=== PATIENT | female | born 1945 | race Caucasian/White ===

== ENCOUNTER 2018-01-28 08:41 | Inpatient (IN) | payer MEDICARE, BC ==
--- NOTE | 2018-01-28 09:14 | ED ---
General Adult HPI - General Chief complaint: Dizziness Stated complaint: Dizzy, Poss Mini Stroke Time Seen by Provider: 01/28/18 08:51 Source: patient, RN notes reviewed, old records reviewed Mode of arrival: wheelchair Limitations: no limitations - History of Present Illness Initial comments: 72-year-old female presents for evaluation of dizziness and patient has history of TIA, she states that this morning she woke at 545, she felt quite dizzy and felt that she was unsteady on her feet and that she was falling to the right. Denies any weakness or numbness. Denies slurred speech SHE states she did not speak with anyone this morning. She states this episode is similar to previous TIA in the past which was approximately 2 years ago. Denies chest pain or shortness of breath. Denies fever or chills. She denies vertigo symptoms. There is no nausea. No diaphoresis. No abdominal pain nausea or vomiting. Patient did report a mild right-sided headache. - Related Data Home Medications Medication Instructions Recorded Confirmed Cholecalciferol [Vitamin D3] 1,000 unit PO DAILY 04/16/15 01/28/18 Cyanocobalamin [Vitamin B-12] 500 mcg PO DAILY 04/16/15 01/28/18 Ferrous Sulfate [Iron (65 MG 325 mg PO DAILY 04/16/15 01/28/18 Elemental)] Levothyroxine Sodium [Synthroid] 125 mcg PO DAILY 04/16/15 01/28/18 Aspirin EC [Ecotrin Low Dose] 243 mg PO ONCE PRN 01/28/18 01/28/18 Lansoprazole [Prevacid] 30 mg PO DAILY 01/28/18 01/28/18 Previous Rx's Medication Instructions Recorded Atorvastatin Calcium [Lipitor] 20 mg PO HS #30 tab 04/18/15 Allergies Allergy/AdvReac Type Severity Reaction Status Date / Time No Known Allergies Allergy Verified 01/28/18 09:18 Review of Systems ROS Statement: Those systems with pertinent positive or pertinent negative responses have been documented in the HPI. ROS Other: All systems not noted in ROS Statement are negative. Past Medical History Past Medical History: Cancer, CVA/TIA, GERD/Reflux, Hyperlipidemia, Osteoarthritis (OA), Skin Disorder, Thyroid Disorder Additional Past Medical History / Comment(s): kidney stones, cyst on pancrease, stress test 2009(wnl), skin cancer on the scalp,hiatal hernia, [id number] anemia ,hypoglycemia.. History of Any Multi-Drug Resistant Organisms: None Reported Past Surgical History: Appendectomy, Cholecystectomy, Joint Replacement, Tubal Ligation Additional Past Surgical History / Comment(s): kidney stones removed,robb knee replacments Past Anesthesia/Blood Transfusion Reactions: Previous Problems w/ Anesthesia Additional Past Anesthesia/Blood Transfusion Reaction / Comment(s): difficulty waking from aa, hx vertigo Past Psychological History: No Psychological Hx Reported Smoking Status: Never smoker Past Alcohol Use History: None Reported Past Drug Use History: None Reported - Past Family History Father Family Medical History: Myocardial Infarction ([place]) Additional Family Medical History / Comment(s): mi age 59 Mother Family Medical History: Cancer Additional Family Medical History / Comment(s): cancerous brain tumor General Exam Limitations: no limitations General appearance: alert, in no apparent distress Head exam: Present: atraumatic, normocephalic Eye exam: Present: normal appearance, PERRL, EOMI. Absent: nystagmus ENT exam: Present: normal exam Neck exam: Present: normal inspection. Absent: tenderness, meningismus Respiratory exam: Present: normal lung sounds bilaterally. Absent: respiratory distress, wheezes Cardiovascular Exam: Present: regular rate, normal rhythm GI/Abdominal exam: Present: soft. Absent: distended, tenderness Extremities exam: Present: normal inspection, full ROM. Absent: normal capillary refill, pedal edema Neurological exam: Present: alert, oriented X3, CN II-XII intact, other (No ataxia, normal finger-nose, normal heel to truong). Absent: motor sensory deficit Psychiatric exam: Present: normal affect, normal mood. Absent: anxious Course Vital Signs 01/28/18 01/28/18 08:44 10:13 Temperature 98.0 F Pulse Rate 60 54 L Respiratory 18 18 Rate Blood Pressure 164/88 157/72 O2 Sat by Pulse 98 97 Oximetry EKG Findings - EKG Comments: EKG Findings:: EKG: Normal sinus rhythm, rate of 63, OK interval 132, QRS duration 74, QTC [address] segment elevation or depression, no T-wave abnormality Medical Decision Making - Medical Decision Making 72-year-old female presenting with symptoms consistent with her previous TIA. She has a nonfocal neurologic exam. Head CT is obtained, negative for acute intracranial hemorrhage or mass effect. Chest x-ray shows cardiomegaly and hyperinflation consistent with COPD, no focal pneumonia or acute findings. CBC CMP are unremarkable and EKG is normal sinus. Patient will be admitted for TIA rule out with neurology on consult. - Lab Data Result diagrams: 01/28/18 09:15 01/28/18 09:15 Lab Results 01/28/18 01/28/18 01/28/18 Range/Units 09:15 09:15 09:15 WBC 4.6 (3.8-10.6) k/uL RBC 5.27 (3.80-5.40) m/uL Hgb 14.4 (11.4-16.0) gm/dL Hct 44.0 (34.0-46.0) % MCV 83.5 (80.0-100.0) fL MCH 27.3 (25.0-35.0) pg MCHC 32.7 (31.0-37.0) g/dL RDW 13.1 (11.5-15.5) % Plt Count 232 (150-450) k/uL Neutrophils % 66 % Lymphocytes % 21 % Monocytes % 8 % Eosinophils % 2 % Basophils % 1 % Neutrophils # 3.0 (1.3-7.7) k/uL Lymphocytes # 1.0 (1.0-4.8) k/uL Monocytes # 0.4 (0-1.0) k/uL Eosinophils # 0.1 (0-0.7) k/uL Basophils # 0.0 (0-0.2) k/uL PT (9.0-12.0) sec INR (<1.2) APTT (22.0-30.0) sec Sodium 142 (137-145) mmol/L Potassium 4.4 (3.5-5.1) mmol/L Chloride 107 (98-107) mmol/L Carbon Dioxide 26 (22-30) mmol/L Anion Gap 9 mmol/L BUN 12 (7-17) mg/dL Creatinine 0.64 (0.52-1.04) mg/dL Est GFR (CKD-EPI)AfAm >90 (>60 ml/min/1.73 sqM) Est GFR (CKD-EPI)NonAf >90 (>60 ml/min/1.73 sqM) Glucose 110 H (74-99) mg/dL Calcium 9.2 (8.4-10.2) mg/dL Total Bilirubin 0.4 (0.2-1.3) mg/dL AST 22 (14-36) U/L ALT 23 (9-52) U/L Alkaline Phosphatase 108 (38-126) U/L Total Creatine Kinase 26 L (30-135) U/L CK-MB (CK-2) 0.2 (0.0-2.4) ng/mL CK-MB (CK-2) Rel Index 0.8 Troponin I <0.012 (0.000-0.034) ng/mL Total Protein 6.6 (6.3-8.2) g/dL Albumin 3.9 (3.5-5.0) g/dL 01/28/18 Range/Units 09:15 WBC (3.8-10.6) k/uL RBC (3.80-5.40) m/uL Hgb (11.4-16.0) gm/dL Hct (34.0-46.0) % MCV (80.0-100.0) fL MCH (25.0-35.0) pg MCHC (31.0-37.0) g/dL RDW (11.5-15.5) % Plt Count (150-450) k/uL Neutrophils % % Lymphocytes % % Monocytes % % Eosinophils % % Basophils % % Neutrophils # (1.3-7.7) k/uL Lymphocytes # (1.0-4.8) k/uL Monocytes # (0-1.0) k/uL Eosinophils # (0-0.7) k/uL Basophils # (0-0.2) k/uL PT 10.2 (9.0-12.0) sec INR 1.0 (<1.2) APTT 22.3 (22.0-30.0) sec Sodium (137-145) mmol/L Potassium (3.5-5.1) mmol/L Chloride (98-107) mmol/L Carbon Dioxide (22-30) mmol/L Anion Gap mmol/L BUN (7-17) mg/dL Creatinine (0.52-1.04) mg/dL Est GFR (CKD-EPI)AfAm (>60 ml/min/1.73 sqM) Est GFR (CKD-EPI)NonAf (>60 ml/min/1.73 sqM) Glucose (74-99) mg/dL Calcium (8.4-10.2) mg/dL Total Bilirubin (0.2-1.3) mg/dL AST (14-36) U/L ALT (9-52) U/L Alkaline Phosphatase (38-126) U/L Total Creatine Kinase (30-135) U/L CK-MB (CK-2) (0.0-2.4) ng/mL CK-MB (CK-2) Rel Index Troponin I (0.000-0.034) ng/mL Total Protein (6.3-8.2) g/dL Albumin (3.5-5.0) g/dL Disposition Clinical Impression: TIA (transient ischemic attack) Disposition: ADMITTED IP TO THIS HOSP Condition: Stable Is patient prescribed a controlled substance at d/c from ED?: No Referrals: Fallon Badillo DO [Primary Care Provider] - 1-2 days Decision to Admit Reason: Admit from EC Decision Date: 01/28/18 Decision Time: 10:38
[2018-01-28 09:27] LABS: Basophils % (A) 1 %; Eosinophils # (A) 0.1 k/uL (0-0.7); Eosinophils % (A) 2 %; HGB 14.4 gm/dL (11.4-16.0); Lymphocytes % (A) 21 %; MCH 27.3 pg (25.0-35.0); MCHC 32.7 g/dL (31.0-37.0); MCV 83.5 fL (80.0-100.0); Mean Platelet Volume 7.5; Monocytes # (A) 0.4 k/uL (0-1.0); Monocytes % (A) 8 %; Neutrophils % (A) 66 %; Platelet Count 232 k/uL (150-450); RBC 5.27 m/uL (3.80-5.40); RDW 13.1 % (11.5-15.5); WBC 4.6 k/uL (3.8-10.6)
--- NOTE | 2018-01-28 09:35 | CT ---
EXAMINATION TYPE: CT brain wo con DATE OF EXAM: 01/28/2018 HISTORY: Severe dizziness, neurodeficits per order CT DLP: 1025 mGycm. Automated Exposure Control for Dose Reduction was Utilized. TECHNIQUE: CT scan of the head is performed without contrast. COMPARISON: CT brain April 16, 2015. FINDINGS: There is no acute intracranial hemorrhage or midline shift identified. There is diffuse v entricular and sulcal prominence consistent with diffuse age-related cerebral atrophy. There is low- attenuation in the periventricular white matter consistent with chronic small vessel ischemic change. The globes are intact and the visualized sinuses are clear. No suspicious opacification mastoid a ir cells is present. IMPRESSION: No acute intracranial hemorrhage or midline shift. There is mild diffuse age-related ce rebral atrophy and mild chronic small vessel ischemic change redemonstrated without significant randolph e from prior.
[2018-01-28 09:36] LABS: ALT 23 U/L (9-52); AST 22 U/L (14-36); Albumin 3.9 g/dL (3.5-5.0); Alkaline Phosphatase 108 U/L (38-126); Anion Gap 9 mmol/L; Blood Urea Nitrogen 12 mg/dL (7-17); Calcium 9.2 mg/dL (8.4-10.2); Carbon Dioxide 26 mmol/L (22-30); Chloride 107 mmol/L (98-107); Glucose 110 mg/dL (74-99); Potassium 4.4 mmol/L (3.5-5.1); Sodium 142 mmol/L (137-145); Total Bilirubin 0.4 mg/dL (0.2-1.3); Total Protein 6.6 g/dL (6.3-8.2)
[2018-01-28 09:42] LABS: Partial Thromboplastin Time 22.3 sec (22.0-30.0); Prothrombin Time 10.2 sec (9.0-12.0)
--- NOTE | 2018-01-28 09:42 | XR ---
EXAMINATION TYPE: XR chest 2V DATE OF EXAM: 01/28/2018 COMPARISON: 04/16/2015 TECHNIQUE: PA and lateral views submitted. HISTORY: Altered mental status FINDINGS: Heart is prominent. Subsegmental changes at the lung base. No pneumothorax. Atherosclerotic change ao rta. Degenerative change of the spine. Retrocardiac density could be associated with a hiatal hernia. Surgical clips in the abdomen noted. IMPRESSION: 1. Cardiomegaly with findings suggestive of COPD.
[2018-01-28 09:50] LABS: Creatine Kinase 26 U/L (30-135)
[2018-01-28 10:03] LABS: Creatine Kinase MB 0.2 ng/mL (0.0-2.4); Troponin I <0.012 ng/mL (0.000-0.034)
[2018-01-28] MEDS ORDERED: ASPIRIN 325 MG TAB PO STA (10:32)
--- NOTE | 2018-01-28 12:09 | P.HPIM ---
History of Present Illness H&P Date: 01/28/18 Chief Complaint: Dizziness 72-year-old female with past medical history of CVA/TIA, hyperlipidemia, hypothyroidism and osteoarthritis presents to ED for evaluation of dizziness; patient states that this morning she woke at 5:45 am, she felt quite dizzy and felt that she was unsteady on her feet and that she was falling to the right. Denies any weakness or numbness. Denies slurred speech; patient relates she did not speak with anyone this morning. She states this episode is similar to previous TIA in the past which was approximately 2 years ago. Denies chest pain or shortness of breath. Denies fever or chills. She denies vertigo symptoms. There is no nausea. No diaphoresis. No abdominal pain nausea or vomiting. Patient did report a mild right-sided headache. Review of Systems Constitutional: Denies fatigue, Denies lethargy, Denies weakness Eyes: denies blurred vision, denies diplopia, denies loss of vision Ears, nose, mouth and throat: Denies dysphagia, Denies hoarseness, Denies nasal congestion Cardiovascular: Reports lightheadedness, Denies dyspnea on exertion, Denies palpitations, Denies rapid heart beat, Denies syncope Respiratory: Denies cough with sputum, Denies dyspnea, Denies wheezing Gastrointestinal: Denies abdominal pain, Denies diarrhea, Denies nausea, Denies vomiting Genitourinary: Denies dysuria, Denies hematuria, Denies nocturia Musculoskeletal: Reports morning stiffness, Denies frequent falls, Denies leg numbness/tingling Integumentary: Denies color changes, Denies darkening of skin, Denies depigmentation, Denies rash Neurological: Reports balance difficulties, Denies change in speech, Denies double vision, Denies headaches, Denies paresthesias, Denies syncope, Denies weakness, Denies visual changes Psychiatric: Denies anxiety, Denies confusion, Denies irritability Endocrine: Denies cold intolerance, Denies heat intolerance, Denies low blood sugars Hematologic/Lymphatic: Denies easy bleeding, Denies easy bruising, Denies lymphadenopathy Past Medical History Past Medical History: Cancer, CVA/TIA, GERD/Reflux, Hyperlipidemia, Osteoarthritis (OA), Skin Disorder, Thyroid Disorder Additional Past Medical History / Comment(s): kidney stones, cyst on pancrease, stress test 2009([facility]), skin cancer on the scalp,hiatal hernia, [id number] anemia ,hypoglycemia.. History of Any Multi-Drug Resistant Organisms: None Reported Past Surgical History: Appendectomy, Cholecystectomy, Joint Replacement, Tubal Ligation Additional Past Surgical History / Comment(s): kidney stones removed,robb knee replacments Past Anesthesia/Blood Transfusion Reactions: Previous Problems w/ Anesthesia Additional Past Anesthesia/Blood Transfusion Reaction / Comment(s): difficulty waking from aa, hx vertigo Past Psychological History: No Psychological Hx Reported Smoking Status: Never smoker Past Alcohol Use History: None Reported Past Drug Use History: None Reported - Past Family History Father Family Medical History: Myocardial Infarction ([place]) Additional Family Medical History / Comment(s): mi age 59 Mother Family Medical History: Cancer Additional Family Medical History / Comment(s): cancerous brain tumor Medications and Allergies Home Medications Medication Instructions Recorded Confirmed Type Cholecalciferol [Vitamin D3] 1,000 unit PO DAILY 04/16/15 01/28/18 History Cyanocobalamin [Vitamin B-12] 500 mcg PO DAILY 04/16/15 01/28/18 History Ferrous Sulfate [Iron (65 MG 325 mg PO DAILY 04/16/15 01/28/18 History Elemental)] Levothyroxine Sodium [Synthroid] 125 mcg PO DAILY 04/16/15 01/28/18 History Atorvastatin Calcium [Lipitor] 20 mg PO HS #30 tab 04/18/15 01/28/18 Rx Aspirin EC [Ecotrin Low Dose] 243 mg PO ONCE PRN 01/28/18 01/28/18 History Lansoprazole [Prevacid] 30 mg PO DAILY 01/28/18 01/28/18 History Allergies Allergy/AdvReac Type Severity Reaction Status Date / Time No Known Allergies Allergy Verified 01/28/18 09:18 Physical Exam Vitals: Vital Signs Temp Pulse Resp BP BP Pulse Ox 01/28/18 11:15 54 L 18 157/77 97 01/28/18 11:05 54 L 18 157/77 98 01/28/18 10:33 16 158/89 97 01/28/18 10:13 54 L 18 157/72 97 01/28/18 08:44 98.0 F 60 18 164/88 98 Intake and Output 01/27/18 01/28/18 01/28/18 22:59 06:59 14:59 Other: Weight 61.235 kg - Constitutional General appearance: Present: average body habitus, cooperative, no acute distress - EENT Eyes: Present: anicteric sclerae, EOMI, PERRLA, normal appearance ENT: Present: hearing grossly normal, normal oropharynx Ears: bilateral: normal - Neck Neck: Present: normal ROM. Absent: lymphadenopathy, rigidity, thyromegaly Carotids: negative: bruit present Thyroid: bilateral: normal size, negative: enlarged, nodule - Respiratory Respiratory: bilateral: CTA, negative: rales, rhonchi, wheezing - Cardiovascular Rhythm: regular Heart sounds: normal: S1, S2 Abnormal Heart Sounds: Absent: systolic murmur, diastolic murmur - Gastrointestinal General gastrointestinal: Present: normal bowel sounds, soft. Absent: distended , organomegaly, tenderness - Genitourinary Genitourinary Comment(s): deferred - Integumentary Integumentary: Present: normal turgor. Absent: jaundiced, rash, ulcer - Neurologic Neurologic: Present: CNII-XII intact. Absent: focal deficits - Musculoskeletal Musculoskeletal: Present: gait normal, strength equal bilaterally - Psychiatric Psychiatric: Present: A&O x's 3, appropriate affect, intact judgment & insight Results CBC & Chem 7: 01/28/18 09:15 01/28/18 09:15 Labs: Abnormal Lab Results - Last 24 Hours (Table) 01/28/18 01/28/18 Range/Units 09:15 09:15 Glucose 110 H (74-99) mg/dL Total Creatine Kinase 26 L (30-135) U/L Assessment and Plan Assessment: 1. TIA/CVA - We will admit the patient to telemetry - Order neuro checks per unit protocol - We will order TSH, vitamin B12 and folic acid levels - Patient is scheduled for 2-D echocardiogram and bilateral carotid Doppler study - Step patient on aspirin 325 mg daily and Lipitor 80 mg daily at bedtime - Neurology is consulted; recommendations are pending - Consult PT/OT/ST for evaluation and treatment 2. Uncontrolled hypertension - Patient is not on any antihypertensive medications - We will monitor blood pressure closely and start patient on antihypertensive prior to discharge if blood pressure remains elevated 3. Hypothyroidism - Patient is clinically euthyroid and currently levothyroxine 125 MCG daily - We will order thyroid profile and make recommendations according to the results 4. Hyperlipidemia; we will escalate statin therapy to Lipitor 80 mg daily 5. Gastroesophageal reflux disease; stable on home dose of Prevacid; continue same 6. DVT prophylaxis; SCDs/subcu heparin CODE STATUS; full code Time with Patient: Greater than 30
--- NOTE | 2018-01-28 12:19 | ECHOF ---
Referral Reason:Thrombus MEASUREMENTS -------- HEIGHT: 162.6 cm WEIGHT: 61.2 kg BP: IVSd: 1.0 cm (0.6 - 1.1) LVIDd: 3.3 cm (3.9 - 5.3) LVPWd: 1.0 cm (0.6 - 1.1) IVSs: 1.2 cm LVIDs: 1.8 cm LVPWs: 1.8 cm Ao Diam: 2.7 cm (2.0 - 3.7) AV Cusp: 1.9 cm (1.5 - 2.6) LA Diam: 3.2 cm (2.7 - 3.8) MV EXCURSION: 11.540 mm (> 18.000) MV EF SLOPE: 76 mm/s (70 - 150) EPSS: 0.5 cm MV E George: 1.11 m/s MV DecT: 181 ms MV A George: 0.75 m/s MV E/A Ratio: 1.47 AR PHT: 830 ms RAP: 5.00 mmHg RVSP: 41.77 mmHg FINDINGS -------- Resting bradycardia (HR<60bpm). This was a technically good study. The left ventricular size is normal. Left ventricular wall thickness is normal. Overall left vent ricular systolic function is normal with, an EF between 55 - 60 %. The right ventricle is normal in size and function. The left atrium is normal in size. The right atrium is normal in size. Possible PFO The aortic valve is trileaflet and appears structurally normal. The mitral valve leaflets are mildly thickened. Mild mitral annular calcification present. Mild m itral regurgitation is present. Moderate tricuspid regurgitation present. There is mild pulmonary hypertension. The right ventric ular systolic pressure, as measured by Doppler, is 41.77mmHg. Pulmonic valve appears structurally normal. The aortic root size is normal. The pericardium is normal. CONCLUSIONS -------- 1. Resting bradycardia (HR<60bpm). 2. This was a technically good study. 3. The left ventricular size is normal. 4. Left ventricular wall thickness is normal. 5. Overall left ventricular systolic function is normal with, an EF between 55 - 60 %. 6. The right ventricle is normal in size and function. 7. The left atrium is normal in size. 8. The right atrium is normal in size. 9. Possible PFO 10. The aortic valve is trileaflet and appears structurally normal. 11. The mitral valve leaflets are mildly thickened. 12. Mild mitral annular calcification present. 13. Mild mitral regurgitation is present. 14. Moderate tricuspid regurgitation present. 15. There is mild pulmonary hypertension. 16. The right ventricular systolic pressure, as measured by Doppler, is 41.77mmHg. 17. Pulmonic valve appears structurally normal. 18. The aortic root size is normal. 19. The pericardium is normal. PHARMACIST TECHNICIAN: Michaelle Robertson RDCS
[2018-01-28 13:31] LABS: Appearance,Urine Clear (Clear); Bilirubin,Urine Negative (Negative); Blood,Urine Negative (Negative); Color,Urine Colorless; Glucose,Urine (UA) Negative (Negative); Ketones,Urine Negative (Negative); Leukocyte Esterase,Urine Negative (Negative); Nitrite,Urine Negative (Negative); Protein,Urine Negative (Negative); Specific Gravity,Urine 1.004 (1.001-1.035); Urobilinogen,Urine <2.0 mg/dL (<2.0)
[2018-01-28] MEDS: PANTOPRAZOLE 40 MG TABLET PO SCH (13:40)
[2018-01-28 13:48] LABS: T4, Free (Free Thyroxine) 2.15 ng/dL (0.78-2.19)
--- NOTE | 2018-01-28 15:59 | US ---
EXAMINATION TYPE: US carotid duplex BILAT DATE OF EXAM: 01/28/2018 COMPARISON: 04/16/2015 CLINICAL HISTORY: Stenosis. EXAM MEASUREMENTS: RIGHT: Peak Systolic Velocity (PSV) cm/sec ----- Right CCA: 58.4 ----- Right ICA: 77.9 ----- Right ECA: 75.5 ICA/CCA ratio: 1.3 RIGHT: End Diastole cm/sec ----- Right CCA: 19.1 ----- Right ICA: 27.4 ----- Right ECA: 11.2 LEFT: Peak Systolic Velocity (PSV) cm/sec ----- Left CCA: 62.1 ----- Left ICA: 76.3 ----- Left ECA: 80.5 ICA/CCA ratio: 1.2 LEFT: End Diastole cm/sec ----- Left CCA: 19.5 ----- Left ICA: 28.0 ----- Left ECA: 13.2 VERTEBRALS (direction of flow): Right Vertebral: Antegrade Left Vertebral: Antegrade Rhythm: Normal Mild atherosclerotic changes, no significant velocity elevations IMPRESSION: Mild atherosclerotic changes with no significant hemodynamic stenosis. Criteria for Assigning % of Stenosis / Diameter reduction (Estimation based on the indirect measurements of the internal carotid artery velocities (ICA PSV). 1. Normal (no stenosis)=ICA PSV < 125 cm/s: ratio < 2.0: ICA EDV<40 cm/s. 2. Less than 50% stenosis=ICA PSV < 125 cm/s: ratio < 2.0: ICA EDV<40 cm/s. 3. 50 to 69% stenosis=ICA PSV of 125 to 230 cm/s: ration 2.0 ? 4.0: ICA EDV 40-100 cm/s. 4. Greater than 70% stenosis to near occlusion= ICA PSV > 230 cm/s: ratio > 4.0: ICA EDV > 100 cm/s. 5. Near occlusion= ICA PSV velocities may be low or undetectable: variable ratio and ICA EDV. 6. Total occlusion=unable to detect flow.
--- NOTE | 2018-01-28 18:00 | P.CNNES ---
History of Present Illness Consult date: 01/28/18 Reason for Consult: Patient admitted with dizziness and TIA. History of Present Illness: This patient is a 72-year-old right-handed white female who apparently woke up this morning getting ready to go to work at about 6 AM. She states she felt very vertiginous and was having acute dizziness. She states that she could not stand as she felt she was spinning around in space. She was unsteady on her feet and was able to get up from bed only by holding onto the iqbal in her bedroom. Apparently when she tried to walk she was falling to her right side. She waited for at least 2 hours before calling her daughter. Daughter immediately came over to assist her and told her she needs to go to the hospital. Patient did not have any episode of slurred speech when she was talking to her daughter on the phone. She does have a history of a previous TIA which she suffered about 3 years ago with very similar symptoms of acute dizziness. She states that she was feeling very much off balance and had some degree of disequilibrium. She was planning to go to work as usual this morning but could not keep her balance and felt very symptomatic and decided to come into the emergency room. She was brought into [facility] ER where she was evaluated by Dr. Cornell. She was seen in the ER by him and she continued to show evidence of dizziness and uncontrolled hypertension. Apparently her blood pressure was quite elevated in the ER and was recorded at 164/88. This is unusually high for her. The patient was sent for a computed tomography scan of the brain. CAT scan of the brain revealed no acute intracranial hemorrhage or midline shift. There was mild diffuse age-related cerebral atrophy and chronic small vessel ischemic changes noted as compared to previous CAT scan done in 2015. Patient clearly states that she did not have any slurred speech but is unclear whether his speech was involved with this episode this morning. She did not talk to anyone until she called her daughter about 2 hours later. Daughter did not appreciate any dysarthric speech when she was speaking to her on the phone. Patient was also sent for echocardiogram which revealed her ejection fraction to be 55-60 %. Her carotid Doppler ultrasound was also completed today and revealed mild arteriosclerotic changes with no significant hemodynamic stenosis. Patient states that her TIA episode that occurred 3 years ago was very similar in that no specific cause was found. According to the daughter the patient has been under great deal of stress recently due to stress levels at work as well as at home. She does take low dose aspirin on a regular basis since her TIA 3 years ago. We have recommended that she be placed on full dose aspirin 325 mg daily. Patient states that she still feels very dizzy which becomes more symptomatic if she gets up and walks in the room. If she is laying flat in bed the symptoms still are there but not severe. Head movements can worsen her symptoms. She has not appreciated any symptoms of nausea or vomiting. She does take a statin for treatment of hyperlipidemia. She has currently been placed on Lipitor 80 mg daily. Patient states that she occasionally still feels lightheaded and off balance. She does not give true history of spinning vertigo with all of her symptoms. This patient's clinical history suggests possibility of vertebrobasilar insufficiency versus acute labyrinthitis. We have recommended placing the patient on low dose meclizine to see how she responds. We would recommend an MRI of the brain as well for further evaluation of brainstem ischemia. We have explained all of these findings and recommendations to the patient in detail. She understands our working diagnosis and current treatment plan. Neurology is now been consulted for further evaluation and recommendations. Review of Systems Constitutional: Denies chills, Denies fever Eyes: denies blurred vision, denies pain Ears, nose, mouth and throat: Reports vertigo, Denies headache, Denies sore throat Cardiovascular: Denies chest pain, Denies shortness of breath Respiratory: Denies cough Gastrointestinal: Denies abdominal pain, Denies diarrhea, Denies nausea, Denies vomiting Genitourinary: Denies dysuria, Denies hematuria Musculoskeletal: Denies myalgias Integumentary: Denies pruritus, Denies rash Neurological: Reports balance difficulties, Reports gait dysfunction, Reports lack of coordination, Reports vertigo, Denies numbness, Denies weakness Psychiatric: Denies anxiety, Denies depression Endocrine: Denies fatigue, Denies weight change Past Medical History Past Medical History: Cancer, CVA/TIA, GERD/Reflux, Hyperlipidemia, Osteoarthritis (OA), Skin Disorder, Thyroid Disorder Additional Past Medical History / Comment(s): kidney stones, cyst on pancrease, stress test 2009(wnl), skin cancer on the scalp,hiatal hernia, [id number] anemia ,hypoglycemia.. History of Any Multi-Drug Resistant Organisms: None Reported Past Surgical History: Appendectomy, Cholecystectomy, Joint Replacement, Tubal Ligation Additional Past Surgical History / Comment(s): kidney stones removed,robb knee replacments Past Anesthesia/Blood Transfusion Reactions: Previous Problems w/ Anesthesia Additional Past Anesthesia/Blood Transfusion Reaction / Comment(s): difficulty waking from aa, hx vertigo Past Psychological History: No Psychological Hx Reported Smoking Status: Never smoker Past Alcohol Use History: None Reported Past Drug Use History: None Reported - Past Family History Father Family Medical History: Myocardial Infarction (IA) Additional Family Medical History / Comment(s): mi age 59 Mother Family Medical History: Cancer Additional Family Medical History / Comment(s): cancerous brain tumor Medications and Allergies Home Medications Medication Instructions Recorded Confirmed Type Cholecalciferol [Vitamin D3] 1,000 unit PO DAILY 04/16/15 01/28/18 History Cyanocobalamin [Vitamin B-12] 500 mcg PO DAILY 04/16/15 01/28/18 History Ferrous Sulfate [Iron (65 MG 325 mg PO DAILY 04/16/15 01/28/18 History Elemental)] Levothyroxine Sodium [Synthroid] 125 mcg PO DAILY 04/16/15 01/28/18 History Atorvastatin Calcium [Lipitor] 20 mg PO HS #30 tab 04/18/15 01/28/18 Rx Aspirin EC [Ecotrin Low Dose] 243 mg PO ONCE PRN 01/28/18 01/28/18 History Lansoprazole [Prevacid] 30 mg PO DAILY 01/28/18 01/28/18 History Allergies Allergy/AdvReac Type Severity Reaction Status Date / Time No Known Allergies Allergy Verified 01/28/18 09:18 Physical Examination - Vital Signs Vital Signs: Vital Signs Temp Pulse Pulse Resp BP BP Pulse Ox 01/28/18 16:13 97.0 F L 54 L 16 141/70 97 01/28/18 15:18 57 L 16 01/28/18 12:00 57 L 16 156/76 97 01/28/18 11:59 98.0 F 54 L 18 157/77 97 01/28/18 11:15 54 L 18 157/77 97 01/28/18 11:05 54 L 18 157/77 98 01/28/18 10:33 16 158/89 97 01/28/18 10:13 54 L 18 157/72 97 01/28/18 08:44 98.0 F 60 18 164/88 98 Intake and Output 01/28/18 01/28/18 01/28/18 06:59 14:59 22:59 Intake Total 100 Balance 100 Intake: Amount of Fluid Infused ( 100 ml) Other: Voiding Method Toilet Toilet Weight 61.235 kg - Constitutional General appearance: average body habitus, cooperative - EENT EENT: PERRL, mucous membranes moist - Respiratory Respiratory: lungs clear, normal breath sounds - Cardiovascular Cardiovascular: regular rate, normal S1, normal S2 Extremities: no peripheral edema bilaterally - Gastrointestinal Gastrointestinal: normoactive bowel sounds - Integumentary Integumentary: normal - Neurologic Cranial nerve examination: PERRL, EOMI, VFF, V1/V2/V3 grossly intact, face symmetric, intact shoulder shrug, intact gag reflex, intact corneal reflex, normal palatal elevation Speech examination: intact Sensorimotor examination: intact Motor examination - right side: 4/5: biceps, triceps, wrist flexion, wrist extension, customer professional, hip flexors, knee extensors, dorsiflexion, toe extension (EHL) , plantarflexion Motor examination - left side: 4/5: biceps, triceps, wrist flexion, wrist extension, customer professional, hip flexors, knee extensors, dorsiflexion, toe extension (EHL) , plantarflexion Detailed sensory examination: intact Reflex and gait examination: intact Reflexes: 1+: ankle, bicep, knee, tricep - Musculoskeletal Musculoskeletal: no pain - Psychiatric Psychiatric: mood/affect appropriate, cooperative Results - Laboratory Findings CBC and BMP: 01/28/18 09:15 01/28/18 09:15 Abnormal Lab Findings: Abnormal Labs 01/28/18 01/28/18 01/28/18 09:15 09:15 09:15 Glucose 110 H Total Creatine Kinase 26 L TSH <0.015 L Assessment and Plan (1) Vertebrobasilar insufficiency Current Visit: Yes Status: Acute Code(s): G45.0 - VERTEBRO-BASILAR ARTERY SYNDROME SNOMED Code(s): 648702047 (2) Acute labyrinthitis Current Visit: Yes Status: Acute Code(s): H83.09 - LABYRINTHITIS, UNSPECIFIED EAR SNOMED Code(s): 23441050 (3) TIA (transient ischemic attack) Current Visit: Yes Status: Acute Code(s): G45.9 - TRANSIENT CEREBRAL ISCHEMIC ATTACK, UNSPECIFIED SNOMED Code(s): 983917555 (4) History of TIA (transient ischemic attack) Current Visit: Yes Status: Acute Code(s): Z86.73 - PRSNL HX OF TIA (TIA), AND CEREB INFRC W/O RESID DEFICITS SNOMED Code(s): 398948488 Plan: This patient is a 72-year-old female who is being evaluated for recent episode of acute dizziness and vertigo. Patient states her symptoms began early this morning causing her inability to ambulate due to dizziness and spinning sensation. She states she was unable to ambulate in her home and thought her symptoms would improve with time. She was getting ready to go to work this morning but could not maneuver herself at home due to the symptoms of dizziness. She was able to contact her daughter 2 hours later who advised her to go to the emergency room. She was seen in the ER at [facility] this morning and was evaluated by Dr. Cornell. She underwent a computed tomography scan of the brain which failed to reveal any evidence of acute stroke or hemorrhage. She continues to have symptoms of what she describes as dizziness and a sense of disequilibrium. Her differential diagnosis would include possibility of vertebrobasilar insufficiency versus acute labyrinthitis. We have recommended the patient undergo an MRI of the brain for further evaluation of brainstem ischemia. We will also start her on low dose meclizine for treatment of possible mild labyrinthitis. Would recommend physical therapy consultation for the patient as well. Would recommend laboratory evaluation for acute stroke assessment as well. Case was discussed at length with the patient and her daughter at bedside. All of their questions were answered. She is aware of our recommendations and will await further test results to be completed and we will give further recommendations pending these final results. Would recommend physical therapy to assess this patient as well. Her overall prognosis at this time remains guarded. We will continue close neurological follow-up with the patient during this admission. Time with Patient: Greater than 30
[2018-01-28 20:06] LABS: Folate, Serum 10.8 ng/mL
[2018-01-28] MEDS: ATORVASTATIN 80 MG TAB PO SCH (20:46)
[2018-01-28] MEDS: HEPARIN SODIUM,PORCINE 5,000 UNIT/ML 1 ML VIAL SQ SCH (20:47)
[2018-01-28] MEDS: MECLIZINE 12.5 MG TAB PO SCH (20:48)
[2018-01-29] MEDS: PANTOPRAZOLE 40 MG TABLET PO SCH (05:26)
[2018-01-29] MEDS: LEVOTHYROXINE 125 MCG TAB PO SCH (05:26)
[2018-01-29 06:17] LABS: Cholesterol 123 mg/dL (<200); HDL Cholesterol 40 mg/dL (40-60); LDL Cholesterol,Calculated 61 mg/dL (0-99); Triglycerides 111 mg/dL (<150)
[2018-01-29] MEDS: CYANOCOBALAMIN 500 MCG TAB PO SCH (09:09)
[2018-01-29] MEDS: HEPARIN SODIUM,PORCINE 5,000 UNIT/ML 1 ML VIAL SQ SCH ×2 (09:10→20:25)
[2018-01-29] MEDS: CHOLECALCIFEROL 1,000 UNIT TAB PO SCH (09:10)
[2018-01-29] MEDS: MECLIZINE 12.5 MG TAB PO SCH ×2 (09:10→20:25)
[2018-01-29] MEDS: FERROUS SULFATE 325 MG TAB PO SCH (09:10)
[2018-01-29] MEDS: ASPIRIN 325 MG TAB PO SCH (09:10)
--- NOTE | 2018-01-29 11:23 | MR ---
EXAMINATION TYPE: MR brain wo con DATE OF EXAM: 01/29/2018 COMPARISON: NONE HISTORY: Patient with vertigo and brainstem ischemia T1-weighted sagittal, T2, FLAIR, and diffusion axial, and T2 coronal coronal views of the brain are s ubmitted. There is no evidence of acute ischemia. The ventricles, basal cisterns, and sulci overlying the conv exities are consistent with the patient's age. There is no mass effect. Craniocervical junction maintained. Sella turcica has a normal appearance. No cerebellopontine angle mass. Changes of chronic sinusitis are noted. There are numerous areas of abnormal signal scattered throughout the white matter bilaterally. The la rgest is seen within the right frontal lobe measuring approximately 4.4 mm. IMPRESSION: 1. No acute intracranial process. 2. Nonspecific white matter changes most typical remote microvascular ischemia.
--- NOTE | 2018-01-29 18:38 | P.PN ---
Subjective Progress Note Date: 01/29/18 This patient is a 72-year-old female who is seen in neurology consultation yesterday for evaluation of dizziness. Her symptoms suggested possibility of peripheral vestibular disturbance versus brainstem ischemia. She was sent for MRI of the brain today which was completed and reviewed. MRI results indicate no acute intracranial process. Nonspecific white matter changes suggesting remote microvascular ischemia was noted. We reviewed the results of the MRI today with the patient. She was started on low-dose Antivert yesterday 12.5 mg by mouth twice a day. She is feeling better in terms of the dizziness today and was able to get up and ambulate in her room without feeling excessively dizzy and off balance. We reviewed the results of the MRI today with the patient in detail. We suggest that she continue on Antivert for at least 2-3 weeks and slowly consider weaning off at that time. She may follow-up with ENT if her symptoms should recur. Neurologically she remains stable today on examination. We will continue close neurological follow-up the patient during this admission. Objective - Vital Signs Vital signs: Vital Signs Temp 97.4 F L 01/29/18 16:28 Pulse 57 L 01/29/18 16:28 Resp 16 01/29/18 16:28 BP 122/56 01/29/18 16:28 Pulse Ox 93 L 01/29/18 16:28 Intake & Output 01/28/18 01/29/18 01/29/18 18:59 06:59 18:59 Intake Total 220 20 360 Output Total 300 350 Balance 220 -280 10 Weight 61.235 kg 59.2 kg Intake: IV 20 0.9 20 Amount of Fluid Infused ( 100 ml) Oral 120 360 Output: Urine 300 350 Other: Voiding Method Toilet Toilet Toilet # Voids 1 1 - Exam Physical Examination: PHYSICAL EXAMINATION: Patient is resting comfortably in bed. VITAL SIGNS: Blood pressure is [122/56]. Heart rate is [57]. Respiration is [16] . Temperature is [97.4]. HEENT: Head is atraumatic, neck is supple, there were no carotid bruits. CHEST: Lungs are clear to auscultation and percussion. CARDIAC: S1, S2 normal rate and rhythm. There is no murmur. ABDOMEN: Soft and nontender. Bowel sounds are present. EXTREMITIES: There is no pedal edema. Peripheral pulses are present. Neurological examination: Patient has a nonfocal neurological exam. She has no evidence of horizontal or vertical nystagmus on gaze testing. - Labs CBC & Chem 7: 01/28/18 09:15 01/28/18 09:15 Labs: Microbiology - Last 24 Hours (Table) 01/28/18 13:15 Urine Culture - Preliminary Urine,Clean Catch Assessment and Plan (1) Vertebrobasilar insufficiency Current Visit: Yes Status: Acute Code(s): G45.0 - VERTEBRO-BASILAR ARTERY SYNDROME SNOMED Code(s): 088754261 (2) Acute labyrinthitis Current Visit: Yes Status: Acute Code(s): H83.09 - LABYRINTHITIS, UNSPECIFIED EAR SNOMED Code(s): 40387682 (3) TIA (transient ischemic attack) Current Visit: Yes Status: Acute Code(s): G45.9 - TRANSIENT CEREBRAL ISCHEMIC ATTACK, UNSPECIFIED SNOMED Code(s): 069014300 (4) History of TIA (transient ischemic attack) Current Visit: Yes Status: Acute Code(s): Z86.73 - PRSNL HX OF TIA (TIA), AND CEREB INFRC W/O RESID DEFICITS SNOMED Code(s): 608184891 Plan: This patient is a 72-year-old female being evaluated for acute onset of dizziness. She underwent MRI of the brain today results of which are noted above. MRI fails to reveal any evidence of brainstem stroke or ischemia. She is doing much better on Antivert and should continue the same 12.5 mg by mouth twice a day for at least 2-3 weeks and then consider weaning off. Patient's neurological examination remains unchanged from yesterday. Her clinical history is consistent with acute vestibular neuronitis. She may follow-up with ENT for symptoms should worsen. She is being considered for possible discharge home tomorrow. Overall prognosis at this time remains fair.
[2018-01-29] MEDS: ATORVASTATIN 80 MG TAB PO SCH (20:25)
[2018-01-30] MEDS: LEVOTHYROXINE 125 MCG TAB PO SCH (05:14)
[2018-01-30] MEDS: PANTOPRAZOLE 40 MG TABLET PO SCH (05:14)
[2018-01-30] MEDS: FERROUS SULFATE 325 MG TAB PO SCH (08:55)
[2018-01-30] MEDS: ASPIRIN 325 MG TAB PO SCH (08:56)
[2018-01-30] MEDS: MECLIZINE 12.5 MG TAB PO SCH (08:56)
[2018-01-30] MEDS: CHOLECALCIFEROL 1,000 UNIT TAB PO SCH (08:56)
[2018-01-30] MEDS: HEPARIN SODIUM,PORCINE 5,000 UNIT/ML 1 ML VIAL SQ SCH (08:56)
[2018-01-30] MEDS: CYANOCOBALAMIN 500 MCG TAB PO SCH (08:56)
[2018-01-30 11:21] VITALS: PULSE 53; RESP 18; TEMP 98.8
[2018-01-30 16:26] VITALS: BP 105/68
--- NOTE | 2018-02-01 23:08 | P.PN ---
Subjective Progress Note Date: 01/29/18 Principal diagnosis: Acute labyrinthitis with dizziness 72-year-old female with past medical history of CVA/TIA, hyperlipidemia, hypothyroidism and osteoarthritis presents to ED for evaluation of dizziness; patient states that this morning she woke at 5:45 am, she felt quite dizzy and felt that she was unsteady on her feet and that she was falling to the right. Denies any weakness or numbness. Denies slurred speech; patient relates she did not speak with anyone this morning. She states this episode is similar to previous TIA in the past which was approximately 2 years ago. Denies chest pain or shortness of breath. Denies fever or chills. She denies vertigo symptoms. There is no nausea. No diaphoresis. No abdominal pain nausea or vomiting. Patient did report a mild right-sided headache. 01/29/2018 Patient was started on meclizine with symptomatic improvement. Neurology has seen the patient. MRI of the brain showed no acute process. Nonspecific white matter ischemic changes noted. Otherwise patient is being continued on PT OT and anticipate discharge in next 24 hours. No complaints of chest pain or shortness of breath. No nausea vomiting or abdominal pain. All other review of systems negative except the above Current medications reviewed Objective - Vital Signs Vital signs: Vital Signs Temp 97.1 F L 01/29/18 11:47 Pulse 56 L 01/29/18 11:48 Resp 16 01/29/18 11:48 BP 112/64 01/29/18 11:47 Pulse Ox 95 01/29/18 11:47 Intake & Output 01/28/18 01/29/18 01/29/18 18:59 06:59 18:59 Intake Total 220 20 360 Output Total 300 200 Balance 220 -280 160 Weight 61.235 kg 59.2 kg Intake: IV 20 0.9 20 Amount of Fluid Infused ( 100 ml) Oral 120 360 Output: Urine 300 200 Other: Voiding Method Toilet Toilet Toilet # Voids 1 1 - Exam PHYSICAL EXAMINATION: Patient is lying in the bed comfortably, no acute distress, awake alert and oriented.. HEENT: Normocephalic. Neck is supple. Pupils reactive. Nostrils clear. Oral cavity is moist. Ears reveal no drainage. Neck reveals no JVD, carotid bruits, or thyromegaly. CHEST EXAMINATION: Trachea is central. Symmetrical expansion. Lung mcmullen clear to auscultation and percussion. CARDIAC: Normal S1, S2 with no gallops. No murmurs ABDOMEN: Soft. Bowel sounds normal. No organomegaly. No abdominal bruits. Extremities: reveal no edema. No clubbing or cyanosis Neurologically awake, alert, oriented x3 with well-coordinated movements. No focal deficits noted Skin: No rash or skin lesions. Psychiatric: Coperative. Nonsuicidal Musculoskeletal: No joint swelling or deformity. Normal range of motion. - Labs CBC & Chem 7: 01/28/18 09:15 01/28/18 09:15 Labs: Microbiology - Last 24 Hours (Table) 01/28/18 13:15 Urine Culture - Preliminary Urine,Clean Catch Assessment and Plan Assessment: 1. Dizziness likely due to acute labyrinthitis and vertebrobasilar insufficiency. Improved with meclizine 2. . Possible TIA. TSH low free T4 are within normal limits. Normal vitamin B12 and folic acid levels. Continued on aspirin. 2. Uncontrolled hypertension. On admission - Patient is not on any antihypertensive medications - Blood pressure is controlled now. 3. Hypothyroidism - Patient is clinically euthyroid and currently levothyroxine 125 MCG daily 4. Hyperlipidemia; we will escalate statin therapy to Lipitor 80 mg daily 5. Gastroesophageal reflux disease; stable on home dose of Prevacid; continue same 6. DVT prophylaxis; SCDs/subcu heparin Time with Patient: Greater than 30
--- NOTE | 2018-02-01 23:09 | P.DS ---
Providers Date of admission: 01/30/18 07:50 Expected date of discharge: 01/30/18 Attending physician: Jermaine Vasquez Consults: 01/28/18 10:33 Consult Physician Routine Consulting Provider: Jazmyne Ferrari Consult Reason/Comments: TIA Do you want consulting provider notified?: Yes Primary care physician: Fallon Badillo Hospital Course: Discharge diagnosis 1. Dizziness likely due to acute labyrinthitis and vertebrobasilar insufficiency. Improved with meclizine 2. . Possible TIA. TSH low free T4 are within normal limits. Normal vitamin B12 and folic acid levels. Continued on aspirin. 2. Uncontrolled hypertension. On admission - Patient is not on any antihypertensive medications - Blood pressure is controlled now. 3. Hypothyroidism - Patient is clinically euthyroid and currently levothyroxine 125 MCG daily 4. Hyperlipidemia; we will escalate statin therapy to Lipitor 80 mg daily 5. Gastroesophageal reflux disease; stable on home dose of Prevacid; continue same 6. DVT prophylaxis; SCDs/subcu heparin Hospital course 72-year-old female with past medical history of CVA/TIA, hyperlipidemia, hypothyroidism and osteoarthritis presents to ED for evaluation of dizziness; patient states that this morning she woke at 5:45 am, she felt quite dizzy and felt that she was unsteady on her feet and that she was falling to the right. Denies any weakness or numbness. Denies slurred speech; patient relates she did not speak with anyone this morning. She states this episode is similar to previous TIA in the past which was approximately 2 years ago. Denies chest pain or shortness of breath. Denies fever or chills. She denies vertigo symptoms. There is no nausea. No diaphoresis. No abdominal pain nausea or vomiting. Patient did report a mild right-sided headache. 01/29/2018 Patient was started on meclizine with symptomatic improvement. Neurology has seen the patient. MRI of the brain showed no acute process. Nonspecific white matter ischemic changes noted. Otherwise patient is being continued on PT OT and anticipate discharge in next 24 hours. 01/30/2018 Patient denied any complaints of chest pain or shortness of breath. No headache or dizziness or lightheadedness. Ambulating well without support. PT has seen the patient recommended discharged home. Otherwise patient is stable to be discharged and follow with neurology as well as ENT as an outpatient. Discharge physical examination was done and vitals reviewed. Patient Condition at Discharge: Stable Plan - Discharge Summary Discharge Rx Participant: No New Discharge Prescriptions: New Meclizine [Antivert] 12.5 mg PO BID PRN #15 tab PRN Reason: Vertigo Aspirin EC [Ecotrin Low Dose] 81 mg PO DAILY #30 tablet. Continue Levothyroxine Sodium [Synthroid] 125 mcg PO DAILY Ferrous Sulfate [Iron (65 MG Elemental)] 325 mg PO DAILY Cyanocobalamin [Vitamin B-12] 500 mcg PO DAILY Cholecalciferol [Vitamin D3] 1,000 unit PO DAILY Atorvastatin Calcium [Lipitor] 20 mg PO HS #30 tab Lansoprazole [Prevacid] 30 mg PO DAILY Aspirin EC [Ecotrin Low Dose] 243 mg PO ONCE PRN PRN Reason: stroke sypmtoms Discharge Medication List Cholecalciferol [Vitamin D3] 1,000 unit PO DAILY 04/16/15 [History] Cyanocobalamin [Vitamin B-12] 500 mcg PO DAILY 04/16/15 [History] Ferrous Sulfate [Iron (65 MG Elemental)] 325 mg PO DAILY 04/16/15 [History] Levothyroxine Sodium [Synthroid] 125 mcg PO DAILY 04/16/15 [History] Atorvastatin Calcium [Lipitor] 20 mg PO HS #30 tab 04/18/15 [Rx] Aspirin EC [Ecotrin Low Dose] 243 mg PO ONCE PRN 01/28/18 [History] Lansoprazole [Prevacid] 30 mg PO DAILY 01/28/18 [History] Aspirin EC [Ecotrin Low Dose] 81 mg PO DAILY #30 tablet. 01/30/18 [Rx] Meclizine [Antivert] 12.5 mg PO BID PRN #15 tab 01/30/18 [Rx] Follow up Appointment(s)/Referral(s): Fallon Badillo DO [Primary Care Provider] - 01/31/18 2:00 pm () Patient Instructions/Handouts: Transient Ischemic Attack (DC) Activity/Diet/Wound Care/[phone] Discharge Disposition: HOME SELF-CARE
== END 2018-01-30 16:44 | disposition home or self-care (01) | DRG 149 ==
LOC: EC 08:41 → 6SEL 10:47 → OBSVTOIN 01-30 07:50 → UNDODISIN 01-30 16:36
PROVIDERS: ADMIT Hospitalist; ATTEND Hospitalist
DX: H83.09 Labyrinthitis, unspecified ear (principal); G45.0 Vertebro-basilar artery syndrome; J44.9 Chronic obstructive pulmonary disease, unspecified; I11.9 Hypertensive heart disease without heart failure; E03.9 Hypothyroidism, unspecified; E78.5 Hyperlipidemia, unspecified; M19.91 Primary osteoarthritis, unspecified site; K44.9 Diaphragmatic hernia without obstruction or gangrene; K21.9 Gastro-esophageal reflux disease without esophagitis; Z79.82 Long term (current) use of aspirin; Z79.890 Hormone replacement therapy; Z79.899 Other long term (current) drug therapy; Z86.73 Personal history of transient ischemic attack (TIA), and cerebral infarction without residual deficits; Z86.19 Personal history of other infectious and parasitic diseases; Z85.828 Personal history of other malignant neoplasm of skin; Z90.49 Acquired absence of other specified parts of digestive tract; Z98.51 Tubal ligation status; Z96.653 Presence of artificial knee joint, bilateral; Z87.442 Personal history of urinary calculi; Z82.49 Family history of ischemic heart disease and other diseases of the circulatory system; Z80.8 Family history of malignant neoplasm of other organs or systems
CPT/HCPCS: 36415; 70450; 70551; 71046; 80053; 80061; 81003; 82550; 82553; 82607; 82746; 84439; 84443; 84484; 85025; 85610; 85730; 87086; 93005; 93306; 93880; 94760; 99285

== ENCOUNTER → 2018-03-07 | Outpatient (CLI) | payer MEDICARE, BC ==
--- NOTE | 2018-03-18 07:11 | ENG ---
ELECTRONYSTAGMOGRAM REPORT VIDEO ELECTRONYSTAGMOGRAPHIC REPORT: AGE: 72 ENG INDICATIONS: 72-year-old female with dizziness and vertigo. PRIMARY CARE PHYSICIAN: Dr. Fallon Degroot. VNG FINDINGS: SPONTANEOUS NYSTAGMUS: SACCADES: Saccades shows intact peak velocities, accuracies and latencies. GAZE TEST: Gaze with fixation shows no nystagmus in any of the directions of gaze including centrally with vision denied. SINUSOIDAL TRACKING: Tracking shows no breakups. OKN TEST: Optokinetic nystagmus shows no significant asymmetry. KAYLEE-HALLPIKE TEST: [place]-Hallpike maneuver is negative. POSITION TEST: Static position testing in 6 different positions with eyes open and then close to evoke stone nystagmus. CALORIC TEST: Caloric testing showed 11% unilateral right caloric weakness which is within normal limits. CONCLUSION: Unremarkable VNG study. No vestibular or central features are indicated. MMODL / IJN: [id number] /
== END | disposition home or self-care (01) ==
LOC: NEUROMAIN 06:44
PROVIDERS: ATTEND Psychiatry & Neurology Neurology
DX: R42 Dizziness and giddiness (principal)
CPT/HCPCS: 92537; 92540

== ENCOUNTER 2021-01-02 13:02 | Emergency (ER) | payer MEDICARE, BC ==
[2021-01-02 13:30] VITALS: TEMP 97.8
[2021-01-02] MEDS ORDERED: MORPHINE SULFATE 4 MG/ML SYRINGE IV STA (13:37)
--- NOTE | 2021-01-02 13:40 | ED ---
General Adult HPI - General Chief complaint: Fall Stated complaint: fall Time Seen by Provider: 01/02/21 13:24 Source: patient, EMS Mode of arrival: EMS Limitations: no limitations - History of Present Illness Initial comments: Dictation was produced using [employer] dictation software. please excuse any grammatical, word or spelling errors. Chief Complaint: 75-year-old female with past medical history bilateral knee replacements presents emergency department for knee pain History of Present Illness: 75-year-old female one hour prior to arrival patient was walking on her ceramic tile when she felt like her knee buckled causing her to fall to the ground. She states she did hit the back of her head on the wall. Patient denies any headache. No loss of consciousness. She has no neck pain. She does not take any anticoagulation medications. Patient complains of right knee pain she states that the medial anterior knee hurts the most. She called EMS and was brought to the emergency department. She received 200 mcg of IM fentanyl The ROS documented in this emergency department record has been reviewed and co nfirmed by me. Those systems with pertinent positive or negative responses have been documented in the HPI. All other systems are other negative and/or noncontributory. PHYSICAL EXAM: General Impression: Alert and oriented x3, not in acute distress HEENT: Normocephalic atraumatic, extra-ocular movements intact, pupils equal and reactive to light bilaterally, mucous membranes moist. Cardiovascular: Heart regular rate and rhythm Chest: Able to complete full sentences, no retractions, no tachypnea Abdomen: abdomen soft, non-tender, non-distended, no organomegaly Musculoskeletal: Pulses present and equal in all extremities, no peripheral edema Right knee: Gross deformity to the right knee with what appears to be a laterally displaced patella. Distal right extremities unremarkable. She has no neurovascular deficits. Motor: no focal deficits noted Neurological: CN II-XII grossly intact, no focal motor or sensory deficits noted Skin: Intact with no visualized rashes Psych: Normal affect and mood ED course: 75-year-old male presents to the emergency department for knee pain. She fell and did contuse her head 1 hour prior to arrival. Vital signs upon arrival are within acceptable limits. Computed tomography scan the brain and C-spine shows no acute processes. Knee x-ray shows right distal femoral shaft fracture. It is unclear whether this is a para prosthetic fracture. Case discussed with home I who is taking call for orthopedic city call. Call reports that he discussed the patient with attending physician Dr. Rolle and and Dr. Nath requested patient transferred to [facility]. Case discussed with Dr. Garcia at [facility] who is willing to accept patient clear for transfer. EKG interpretation: Ventricular rate 67, normal sinus rhythm,. Interval 134, QRS 70, QTC 426. No KS prolongation, no QTC prolongation, no ST or T-wave changes noted. . Overall, this EKG is unremarkable - Related Data Home Medications Medication Instructions Recorded Confirmed Cholecalciferol [Vitamin D3 (25 1,000 unit PO DAILY 04/16/15 01/02/21 Mcg = 1000 Iu)] Ferrous Sulfate [Iron (65 MG 325 mg PO DAILY 04/16/15 01/02/21 Elemental)] Atorvastatin [Lipitor] 40 mg PO HS 01/02/21 01/02/21 L.acidoph,Paracasei, B.lactis 1 cap PO DAILY 01/02/21 01/02/21 [Probiotic] Levothyroxine Sodium [Synthroid] 112 mcg PO DAILY 01/02/21 01/02/21 Pantoprazole Sodium [Protonix] 40 mg PO DAILY 01/02/21 01/02/21 Sertraline [Zoloft] 100 mg PO DAILY 01/02/21 01/02/21 Turmeric Root Extract [Turmeric] 500 mg PO DAILY 01/02/21 01/02/21 Allergies Allergy/AdvReac Type Severity Reaction Status Date / Time No Known Allergies Allergy Verified 01/28/18 09:18 Review of Systems ROS Statement: Those systems with pertinent positive or pertinent negative responses have been documented in the HPI. ROS Other: All systems not noted in ROS Statement are negative. Past Medical History Past Medical History: Cancer, CVA/TIA, GERD/Reflux, Hyperlipidemia, Osteoarthritis (OA), Skin Disorder, Thyroid Disorder Additional Past Medical History / Comment(s): kidney stones, cyst on pancrease, stress test 2009(wnl), skin cancer on the scalp,hiatal hernia, [id number] anemia ,hypoglycemia.. History of Any Multi-Drug Resistant Organisms: None Reported Past Surgical History: Appendectomy, Cholecystectomy, Joint Replacement, Tubal Ligation Additional Past Surgical History / Comment(s): kidney stones removed,robb knee replacments Past Anesthesia/Blood Transfusion Reactions: Previous Problems w/ Anesthesia Additional Past Anesthesia/Blood Transfusion Reaction / Comment(s): difficulty waking from aa, hx vertigo Past Psychological History: No Psychological Hx Reported Smoking Status: Never smoker Past Alcohol Use History: None Reported Past Drug Use History: None Reported - Past Family History Father Family Medical History: Myocardial Infarction ([place]) Additional Family Medical History / Comment(s): mi age 59 Mother Family Medical History: Cancer Additional Family Medical History / Comment(s): cancerous brain tumor General Exam Limitations: no limitations Course Vital Signs 01/02/21 13:27 Temperature 97.8 F Pulse Rate 61 Respiratory 18 Rate Blood Pressure 163/82 O2 Sat by Pulse 94 L Oximetry Medical Decision Making - Lab Data Result diagrams: 01/02/21 14:06 01/02/21 14:06 Lab Results 01/02/21 01/02/21 01/02/21 Range/Units 14:06 14:06 14:06 WBC 6.8 (3.8-10.6) k/uL RBC 4.78 (3.80-5.40) m/uL Hgb 14.2 (11.4-16.0) gm/dL Hct 42.0 (34.0-46.0) % MCV 87.9 (80.0-100.0) fL MCH 29.7 (25.0-35.0) pg MCHC 33.8 (31.0-37.0) g/dL RDW 12.9 (11.5-15.5) % Plt Count 200 (150-450) k/uL MPV 7.9 Neutrophils % 74 % Lymphocytes % 16 % Monocytes % 6 % Eosinophils % 2 % Basophils % 1 % Neutrophils # 5.0 (1.3-7.7) k/uL Lymphocytes # 1.1 (1.0-4.8) k/uL Monocytes # 0.4 (0-1.0) k/uL Eosinophils # 0.2 (0-0.7) k/uL Basophils # 0.1 (0-0.2) k/uL PT 10.1 (9.0-12.0) sec INR 0.9 (<1.2) APTT 21.3 L (22.0-30.0) sec Sodium 141 (137-145) mmol/L Potassium 4.2 (3.5-5.1) mmol/L Chloride 108 H (98-107) mmol/L Carbon Dioxide 26 (22-30) mmol/L Anion Gap 7 mmol/L BUN 20 H (7-17) mg/dL Creatinine 0.71 (0.52-1.04) mg/dL Est GFR (CKD-EPI)AfAm >90 (>60 ml/min/1.73 sqM) Est GFR (CKD-EPI)NonAf 85 (>60 ml/min/1.73 sqM) Glucose 110 H (74-99) mg/dL Calcium 9.2 (8.4-10.2) mg/dL Disposition Clinical Impression: Femur fracture Disposition: OTHER INSTITUTION NOT DEFINED Condition: Fair Referrals: Fallon Badillo DO [Primary Care Provider] - 1-2 days - Out of Hospital Transfer - Req. Specs Out of Hospital Transfer - Requested Specifics: Other Emergency Center ([facility])
[2021-01-02 14:31] LABS: Basophils # (A) 0.1 k/uL (0-0.2); Basophils % (A) 1 %; Eosinophils # (A) 0.2 k/uL (0-0.7); Eosinophils % (A) 2 %; HGB 14.2 gm/dL (11.4-16.0); Lymphocytes # (A) 1.1 k/uL (1.0-4.8); Lymphocytes % (A) 16 %; MCH 29.7 pg (25.0-35.0); MCHC 33.8 g/dL (31.0-37.0); MCV 87.9 fL (80.0-100.0); Mean Platelet Volume 7.9; Monocytes # (A) 0.4 k/uL (0-1.0); Monocytes % (A) 6 %; Neutrophils % (A) 74 %; Platelet Count 200 k/uL (150-450); RBC 4.78 m/uL (3.80-5.40); RDW 12.9 % (11.5-15.5); WBC 6.8 k/uL (3.8-10.6)
[2021-01-02 14:42] LABS: African American GFR (CKD) >90 (>60 ml/min/1.73 sqM); Anion Gap 7 mmol/L; Blood Urea Nitrogen 20 mg/dL (7-17); Calcium 9.2 mg/dL (8.4-10.2); Carbon Dioxide 26 mmol/L (22-30); Chloride 108 mmol/L (98-107); Glucose 110 mg/dL (74-99); Non-African American GFR(CKD) 85 (>60 ml/min/1.73 sqM); Potassium 4.2 mmol/L (3.5-5.1); Sodium 141 mmol/L (137-145)
--- NOTE | 2021-01-02 14:47 | XR ---
Result: History: Pain status post fall. Comparison: None available. Technique: 3 views of the right knee. Findings: There is mildly displaced spiral extra-articular fracture of the distal femur diaphysis. There is dem onstration of prior total knee arthroplasty. No definite fracture line extending to the hardware. No evidence of dislocation or significant joint effusion. Impression: Acute distal femoral shaft fracture. Prior knee arthroplasty.
[2021-01-02 14:50] LABS: INR 0.9 (<1.2); Prothrombin Time 10.1 sec (9.0-12.0)
[2021-01-02 14:55] LABS: Partial Thromboplastin Time 21.3 sec (22.0-30.0)
--- NOTE | 2021-01-02 14:57 | CT ---
EXAMINATION TYPE: CT brain cspine wo con DATE OF EXAM: 01/02/2021 COMPARISON: 01/28/2018. HISTORY: Fall CT DLP: 1205.9 mGycm Automated exposure control for dose reduction was used. TECHNIQUE: CT scan of the head and cervical spine are performed without contrast. FINDINGS: There is no acute intracranial hemorrhage, mass effect, or midline shift identified. The ventricles and sulci are within normal limits in size. The globes are intact. The visualized sinuse s demonstrate minimal disease. Cervical spine is visualized in its entirety from C1 through upper thoracic levels and demonstrates s atisfactory alignment without evidence of acute fracture or dislocation. There is mild cervical spond ylosis. Prevertebral soft tissue appears within normal limits. The C1-C2 articulation is unremarkab le. IMPRESSION: 1. There is no acute fracture or dislocation evident in the cervical spine. 2. No acute intracranial hemorrhage, mass effect, or midline shift is seen.
[2021-01-02] MEDS ORDERED: HYDROmorphone 0.5 MG/0.5 ML SYRINGE IVP STA (15:34)
[2021-01-02 15:52] VITALS: BP 126/63; PULSE 71
[2021-01-02] MEDS ORDERED: HYDROmorphone 1 MG/ML 1 ML SYRINGE IVP STA (16:11)
[2021-01-02 16:20] VITALS: RESP 18
== END 2021-01-02 16:45 | disposition other institution (70) ==
LOC: EC 13:02
DX: S72.341A Displaced spiral fracture of shaft of right femur, initial encounter for closed fracture (principal); E78.5 Hyperlipidemia, unspecified; K21.9 Gastro-esophageal reflux disease without esophagitis; E07.9 Disorder of thyroid, unspecified; M19.90 Unspecified osteoarthritis, unspecified site; W22.01XA Walked into wall, initial encounter; Y93.01 Activity, walking, marching and hiking; Z85.828 Personal history of other malignant neoplasm of skin; Z86.73 Personal history of transient ischemic attack (TIA), and cerebral infarction without residual deficits; Z96.653 Presence of artificial knee joint, bilateral
CPT/HCPCS: 36415; 93005; 80048; 85025; 85610; 85730; 73562; 72125; 70450; 99284; 96374; 96375; J2270; J1170 ×2

== ENCOUNTER → 2021-04-07 | Outpatient (CLI) | payer MEDICARE, BC ==
[2021-04-07 22:29] LABS: African American GFR (CKD) 98.9 (60.0-200.0); Albumin 4.3 g/dL (3.80-4.90); Albumin/Globulin Ratio 1.65 (1.60-3.17); Anion Gap 9.2 mmol/L (4.00-12.00); BUN/Creat Ratio 32.86 Ratio (12.00-20.00); Carbon Dioxide 25.8 mmol/L (21.6-31.8); Globulin 2.6 g/dL (1.6-3.3); Non-African American GFR(CKD) 85.4 (60.0-200.0); Potassium 4.3 mmol/L (3.5-5.5); Total Bilirubin 0.4 mg/dL (0.2-1.2); Total Protein 6.9 g/dL (6.2-8.2)
== END | disposition home or self-care (01) ==
LOC: LABWHC1 12:44
PROVIDERS: ATTEND Internal Medicine Endocrinology, Diabetes & Metabolism
DX: M81.0 Age-related osteoporosis without current pathological fracture (principal)
CPT/HCPCS: 36415; 80053; 82306; 82523; 83970; 84443

== ENCOUNTER → 2021-07-08 | Outpatient (CLI) | payer MEDICARE, BC ==
[2021-07-08 20:41] LABS: African American GFR (CKD) 66.2 (60.0-200.0); Albumin 4.2 g/dL (3.8-4.9); Albumin/Globulin Ratio 1.57 (1.60-3.17); BUN/Creat Ratio 20.93 Ratio (12.00-20.00); Blood Urea Nitrogen 20.3 mg/dL (9.0-27.0); Calcium 9.4 mg/dL (8.7-10.3); Carbon Dioxide 23.6 mmol/L (20.0-27.5); Globulin 2.7 g/dL (1.6-3.3); Non-African American GFR(CKD) 57.1 (60.0-200.0); Potassium 4.1 mmol/L (3.5-5.5); Total Bilirubin 0.3 mg/dL (0.30-1.20); Total Protein 6.9 g/dL (6.2-8.2)
== END | disposition home or self-care (01) ==
LOC: LABWHC1 12:49
PROVIDERS: ATTEND Internal Medicine Endocrinology, Diabetes & Metabolism
DX: M81.0 Age-related osteoporosis without current pathological fracture (principal)
CPT/HCPCS: 36415; 80053; 82306; 82523; 84443

== ENCOUNTER 2022-12-27 14:48 | Emergency (ER) | payer MEDICARE, BC ==
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
--- NOTE | 2022-12-27 15:30 | CT ---
EXAMINATION TYPE: CT brain wo con DATE OF EXAM: 12/27/2022 COMPARISON: 01/03/2020 HISTORY: pt states head injury x3 days ago CT DLP: 1119.4 mGycm Automated exposure control for dose reduction was used. FINDINGS: Mild generalized degenerative change with a greater frontal lobe component. No midline shift or mass effect. Calvarium intact. Craniocervical junction maintained. Pineal gland calcifications noted. No a cute hemorrhage. Intracranial atherosclerotic changes are noted. IMPRESSION: DEGENERATIVE CHANGE OF THE GREATER FRONTAL LOBE COMPONENT.
[2022-12-27 15:45] VITALS: PULSE 56
[2022-12-27 16:31] VITALS: BP 145/91; RESP 16; TEMP 97.4
== END 2022-12-27 16:31 | disposition home or self-care (01) ==
LOC: EC 14:48
DX: S00.93XA Contusion of unspecified part of head, initial encounter (principal); K21.9 Gastro-esophageal reflux disease without esophagitis; E78.5 Hyperlipidemia, unspecified; M19.90 Unspecified osteoarthritis, unspecified site; Z86.73 Personal history of transient ischemic attack (TIA), and cerebral infarction without residual deficits; E07.9 Disorder of thyroid, unspecified; Z90.49 Acquired absence of other specified parts of digestive tract; Z79.890 Hormone replacement therapy; Z79.899 Other long term (current) drug therapy; W22.8XXA Striking against or struck by other objects, initial encounter
CPT/HCPCS: 70450; 99283